=== PATIENT | female | born 1935 | race Caucasian/White ===

== ENCOUNTER 2019-03-11 10:54 | Emergency (ER) | payer MEDICARE ==
[2019-03-11 11:33] VITALS: BP 146/46
--- NOTE | 2019-03-11 12:04 | UC ---
Skin Complaint HPI - HPI Summary HPI Summary: 83 yo female with 4-5 day hx of fatigue/anorexia and nausea bulls eye rash left knee noted by her daughter also complains of right lateral chest pain no vomiting Has not had a primary care provider since the age of 66 states she keeps getting dismissed from practices for not taking advice of MDs lives alone gets synthyroid through a clinic in [place] requests TFT here - History of Current Complaint Chief Complaint: UCSkin Time Seen by Provider: 03/11/19 11:43 Stated Complaint: LEFT LEG POSS TICK BITE,NAUSEA Hx Obtained From: Patient Onset/Duration: Gradual Onset Timing: Constant Onset Severity: Moderate Current Severity: Moderate Pain Intensity: 0 Pain Scale Used: 0-10 Numeric Location: Discrete Character: Redness Aggravating Factor(s): Nothing Alleviating Factor(s): Nothing Associated Signs & Symptoms: Positive: Nausea, Weakness - fatigue, Chest Pain - Right lateral, Rash. Negative: Vomiting, Numbness, Thirst, Diaphoresis, Fever, Chills, Cough, Wheezing, Hoarseness, Throat Tightening, Abdominal Pain, Lightheadedness, Syncope, Drainage, Bruising, Tenderness, Red Streaks, Joint Swelling - Allergy/Home Medications Allergies/Adverse Reactions: Allergies Allergy/AdvReac Type Severity Reaction Status Date / Time aspirin AdvReac Bleeding Verified 03/11/19 11:33 Egg Derived AdvReac GI Upset Verified 03/11/19 11:33 milk AdvReac GI Upset Verified 03/11/19 11:33 Home Medications: Home Medications Levothyroxine TAB* [Synthroid TAB*] 50 mcg PO DAILY 03/11/19 [History Confirmed 03/11/19] PMH/Surg Hx/FS Hx/Imm Hx Previously Healthy: Yes - Surgical History Surgical History: Yes Surgery Procedure, Year, and Place: knee. ankle. hysterectomy - Social History Alcohol Use: None Substance Use Type: None Smoking Status (MU): Never Smoked Tobacco Review of Systems All Other Systems Reviewed And Are Negative: Yes Constitutional: Positive: Fatigue Skin: Positive: Rash Eyes: Positive: Negative ENT: Positive: Negative Respiratory: Positive: Negative Cardiovascular: Positive: Chest Pain - right lateral Gastrointestinal: Positive: Negative Genitourinary: Positive: Negative, Vaginal/Penile Itching Neurovascular: Positive: Negative Musculoskeletal: Positive: Negative Neurological: Positive: Negative Psychological: Positive: Negative Physical Exam Triage Information Reviewed: Yes Appearance: Well-Appearing, No Pain Distress, Well-Nourished Vital Signs: Initial Vital Signs Temp 99.6 F 03/11/19 11:25 Pulse 66 03/11/19 11:25 Resp 17 03/11/19 11:25 BP 146/46 03/11/19 11:25 Pulse Ox 99 03/11/19 11:25 Vital Signs Reviewed: Yes Eyes: Positive: Conjunctiva Clear ENT: Positive: Hearing grossly normal. Negative: Nasal congestion, Nasal drainage, Trismus, Muffled voice, Hoarse voice Neck: Positive: Supple, Nontender, No Lymphadenopathy Respiratory: Positive: No respiratory distress, No accessory muscle use, Decreased breath sounds - Right Cardiovascular: Positive: RRR, No Murmur Musculoskeletal: Positive: ROM Intact, No Edema Neurological: Positive: Alert Psychological Exam: Normal Skin Exam: Other - Erythema migrans left knee Diagnostics - Radiology No standard instances Radiology Interpretation Completed By: Radiologist Summary of Radiographic Findings: NAD Course/Dx - Course Course Of Treatment: patient refuses to get a local MD/declines list and physician referral center - Diagnoses Provider Diagnosis: Lyme disease, Erythema migrans (Lyme disease), Chest wall pain Discharge - Sign-Out/Discharge Documenting (check all that apply): Patient Departure All imaging exams completed and their final reports reviewed: Yes - Discharge Plan Condition: Stable Disposition: HOME Prescriptions: Amoxicillin PO (*) [Amoxicillin 500 MG CAP*] 500 mg PO TID #42 cap Patient Education Materials: Lyme Disease (ED) Additional Instructions: blood work pending recheck for new or worsening symptoms recheck next week if appetite not better - Billing Disposition and Condition Condition: STABLE Disposition: Home
[2019-03-11 19:02] LABS: ABS Eosinophils 0.1 10^3/ul (0-0.6); ABS Lymphocytes 1.1 10^3/ul (1.0-4.8); ABS Monocytes 0.5 10^3/ul (0-0.8); Eosinophil % 1.3 %; Hematocrit 46 % (35-47); Hemoglobin 15.6 g/dL (12.0-16.0); Mean Corpuscular HGB Conc 34 g/dL (31-36); Mean Corpuscular Hemoglobin 31 pg (27-31); Mean Corpuscular Volume 91 fL (80-97); Mean Platelet Volume 9.3 fL (7.4-10.4); Nucleated Red Blood Cells % 0.1; Platelet Count 220 10^3/uL (150-450); Red Blood Count 5.08 10^6 /uL (3.70-4.87); Red Cell Distribution Width 13 % (10-15); White Blood Count 6.7 10^3/uL (3.5-10.8)
[2019-03-11 19:28] LABS: TSH (Thyroid Stimulating Horm) 2.99 mcIU/mL (0.34-5.60)
[2019-03-11 19:31] LABS: Free T4 1.02 ng/dL (0.61-1.12)
--- NOTE | 2019-03-13 10:18 | UC ---
- Progress Note Progress Note: Lab tests reviewed today Lyme antibody Test is negative, patient was here for erythema migrans and was started on amoxicillin. TSH is within normal limits WBC is normal RN to call patient and inform her of the results . Sometimes Lyme testing can be negative early on and the test can be repeated in 1-2 weeks . Patient can continue amoxicillin or stop it for now and get retested. Since she has a classic erythema migrans when seen here, she can complete the course of antibiotics. She should return here of go to ER if symptoms getting worse or if there is no improvement. Course/Dx - Diagnoses Provider Diagnoses: Lyme disease, Erythema migrans (Lyme disease), Chest wall pain Discharge - Sign-Out/Discharge Documenting (check all that apply): Post-Discharge Follow Up All imaging exams completed and their final reports reviewed: Yes - Discharge Plan Condition: Stable Disposition: HOME Prescriptions: Amoxicillin PO (*) [Amoxicillin 500 MG CAP*] 500 mg PO TID #42 cap Patient Education Materials: Lyme Disease (ED) Referrals: No Primary Care Phys,NOPCP [Primary Care Provider] - Additional Instructions: blood work pending recheck for new or worsening symptoms recheck next week if appetite not better - Billing Disposition and Condition Condition: STABLE Disposition: Home
== END 2019-03-11 13:24 | disposition home or self-care (01) ==
LOC: UCCORT 10:54
DX: A26.0 Cutaneous erysipeloid (principal); R07.89 Other chest pain; Z91.19 Patient's noncompliance with other medical treatment and regimen
CPT/HCPCS: 36415; 71046; 84439; 84443; 85025; 86618; 99202; G0463